=== PATIENT | female | born 1990 | race Caucasian/White ===

== ENCOUNTER 2022-06-06 15:05 | Emergency (ER) | payer MEDICAID ==
[2022-06-06] MEDS ORDERED: HYDROmorphone 1 MG/ML Syringe IM ONE (17:08)
== END 2022-06-06 19:40 | disposition home or self-care (01) ==
LOC: MW.ED 15:05
DX: M54.41 Lumbago with sciatica, right side (principal); M54.42 Lumbago with sciatica, left side; N39.0 Urinary tract infection, site not specified
CPT/HCPCS: 72131; 81001; 81025; 87086; 96372; 99284; J1170; 99283